=== PATIENT | female | born 1995 | race African-American/Black ===

== ENCOUNTER 2023-05-21 03:08 | Inpatient (IN) | payer OTHER ==
[~2023-05-21] VITALS: Ht 167.6 cm; Wt 91.0 kg
[2023-05-21 03:38] LABS: HEMATOCRIT 42.4 % (36.0-47.0); HEMOGLOBIN 14.2 g/dl (12.0-15.5); MEAN CORPUSCULAR HEMOGLOBIN 29.1 pg (27.0-33.0); MEAN CORPUSCULAR HGB CONC 33.5 g/dl (32.0-36.5); MEAN CORPUSCULAR VOLUME 86.9 fl (80.0-96.0); PLATELET COUNT, AUTOMATED 373 10^3/uL (150-450); RED BLOOD COUNT 4.88 10^6/uL (4.00-5.40); WHITE BLOOD COUNT 17.3 10^3/uL (4.0-10.0)
[2023-05-21 04:05] LABS: AMPHETAMINES LEVEL URINE NEGATIVE (NEGATIVE); BARBITURATES URINE NEGATIVE (NEGATIVE); BENZODIAZEPINES URINE NEGATIVE (NEGATIVE); CANNABINOIDS URINE NEGATIVE (NEGATIVE); COCAINE METABOLITE URINE NEGATIVE (NEGATIVE); METHADONE URINE NEGATIVE (NEGATIVE); OPIATES URINE NEGATIVE (NEGATIVE); PHENCYCLIDINE URINE NEGATIVE (NEGATIVE)
[2023-05-21 04:07] LABS: ETHYL ALCOHOL (ETHANOL) 0.108 % (0.000-0.010)
[2023-05-21 04:08] LABS: ACETAMINOPHEN LEVEL < 2.0 UG/ML (10.0-20.0)
[2023-05-21 04:09] LABS: ALBUMIN 4.3 G/DL (3.2-5.2); ALKALINE PHOSPHATASE 105 U/L (46-116); ALT/SGPT 21 U/L (7.0-40); AST/SGOT < 8 U/L (<34); BILIRUBIN,DIRECT < 0.1 MG/DL (<0.4); BILIRUBIN,TOTAL 0.2 MG/DL (0.3-1.2); BLOOD UREA NITROGEN 14 MG/DL (9-23); CALCIUM LEVEL 9.5 MG/DL (8.5-10.1); CARBON DIOXIDE LEVEL 23 MMOL/L (20-31); CHLORIDE LEVEL 106 MMOL/L (98-107); CREATININE FOR GFR 0.83 MG/DL (0.55-1.30); GLOMERULAR FILTRATION RATE > 60.0 (>60); GLUCOSE, FASTING 143 MG/DL (60-100); SALICYLATE LEVEL < 3.0 MG/DL (<30); SODIUM LEVEL 138 MMOL/L (136-145); TOTAL PROTEIN 7.7 G/DL (5.7-8.2)
[2023-05-21 04:11] LABS: THYROID STIMULATING HORMONE 2.875 uIU/ML (0.55-4.78)
[2023-05-21 04:26] LABS: HCG, SERUM QUALITATIVE POSITIVE (NEGATIVE)
[2023-05-21 06:19] LABS: HCG, SERUM QUANTITATIVE 245.4 MIU/ML (<4.2)
[2023-05-21] MEDS ORDERED: SERT50TA29 PO (07:03)
[2023-05-21] MEDS ORDERED: BUSP10TA PO (07:03)
[2023-05-21] MEDS ORDERED: MELA3TAB30 PO (07:03)
[2023-05-21] MEDS ORDERED: HOME MED LIST COMPLETE! XX SCH (07:05)
[2023-05-21] MEDS: SERTRALINE HCL 50 MG TAB PO SCH (10:21)
[2023-05-21] MEDS: busPIRone 10 MG TAB PO SCH ×2 (10:21→20:48)
[2023-05-21] MEDS ORDERED: LORazepam 2 MG TAB PO PRN (10:40)
[2023-05-21] MEDS ORDERED: MOM 30ML SUSPENSION UDC PO PRN (10:40)
[2023-05-21] MEDS ORDERED: ACETAMINOPHEN TAB 650MG DOSE (2X325MG) PO PRN (10:40)
[2023-05-21] MEDS ORDERED: MAALOX 30 ML SUSP *UDC PO PRN (10:40)
[2023-05-21] MEDS ORDERED: IBUPROFEN 400MG TAB PO PRN (10:40)
[2023-05-21] MEDS ORDERED: diphenhydrAMINE 25MG CAP PO PRN (10:40)
[2023-05-21] MEDS: MULTIVITAMINS/MINERALS THERAP 1 TAB PO SCH (11:14)
[2023-05-21] MEDS: FOLIC ACID 1MG TAB PO SCH (11:14)
[2023-05-21] MEDS: THIAMINE 100 MG TAB PO SCH ×2 (11:14→20:48)
[2023-05-21 12:01] VITALS: BP 136/80; TEMP 98.7; O2SAT 98
[2023-05-21 14:00] VITALS: BP 136/80
[2023-05-21 18:02] VITALS: BP 146/90; TEMP 96.8
[2023-05-21] MEDS ORDERED: busPIRone 10 MG TAB PO SCH (21:00)
[2023-05-21 22:00] VITALS: BP 127/71
[2023-05-22 06:00] VITALS: BP 130/68
[2023-05-22 06:18] VITALS: BP 130/68; TEMP 96.3; O2SAT 96
[2023-05-22] MEDS: FOLIC ACID 1MG TAB PO SCH (08:28)
[2023-05-22] MEDS: SERTRALINE HCL 50 MG TAB PO SCH (08:28)
[2023-05-22] MEDS: MULTIVITAMINS/MINERALS THERAP 1 TAB PO SCH (08:29)
[2023-05-22] MEDS: THIAMINE 100 MG TAB PO SCH (08:29)
[2023-05-22] MEDS: busPIRone 10 MG TAB PO SCH ×2 (08:29→20:37)
[2023-05-22] MEDS: NICOTINE 7 MG/24 HR TRANSDERMAL TD SCH (09:00)
[2023-05-22] MEDS ORDERED: SERTRALINE HCL 50 MG TAB PO SCH (09:00)
[2023-05-22 14:30] VITALS: BP 140/90
[2023-05-22] MEDS: traZODone 50 MG TAB PO PRN (20:37)
[2023-05-23] MEDS: SERTRALINE HCL 50 MG TAB PO SCH (08:12)
[2023-05-23] MEDS: busPIRone 10 MG TAB PO SCH ×2 (08:12→20:26)
[2023-05-23] MEDS: FOLIC ACID 1MG TAB PO SCH (08:13)
[2023-05-23] MEDS: MULTIVITAMINS/MINERALS THERAP 1 TAB PO SCH (08:13)
[2023-05-23] MEDS: NICOTINE 7 MG/24 HR TRANSDERMAL TD SCH (08:40)
[2023-05-23] MEDS: PRENATAL VITAMINS CHEWABLE TABLET PO SCH (09:00)
[2023-05-23 18:54] VITALS: BP 139/84; TEMP 97.2
[2023-05-23] MEDS: traZODone 50 MG TAB PO PRN (20:26)
[2023-05-24 06:25] VITALS: BP 113/56; TEMP 97; O2SAT 98
[2023-05-24] MEDS: busPIRone 10 MG TAB PO SCH ×2 (08:25→20:24)
[2023-05-24] MEDS: PRENATAL VITAMINS CHEWABLE TABLET PO SCH (08:25)
[2023-05-24] MEDS: SERTRALINE HCL 50 MG TAB PO SCH (08:25)
[2023-05-24] MEDS: NICOTINE 7 MG/24 HR TRANSDERMAL TD SCH (08:27)
[2023-05-24] MEDS ORDERED: PRENCHW PO (09:41)
[2023-05-24 18:51] VITALS: BP 131/68; TEMP 97.6
== END 2023-05-25 01:20 | DRG 882 ==
LOC: M ED 03:08 → M ED INP 10:37 → M PSY 12:18
PROVIDERS: ADMIT Student in an Organized Health Care Education/Training Program; ATTEND Student in an Organized Health Care Education/Training Program
DX: F43.10 Post-traumatic stress disorder, unspecified (principal); F43.21 Adjustment disorder with depressed mood; F17.210 Nicotine dependence, cigarettes, uncomplicated; F10.10 Alcohol abuse, uncomplicated; Z91.410 Personal history of adult physical and sexual abuse; Z79.899 Other long term (current) drug therapy; Z91.51 Personal history of suicidal behavior; Z33.1 Pregnant state, incidental

== ENCOUNTER 2023-07-03 11:01 | Emergency (ER) | payer OTHER ==
[~2023-07-03] VITALS: Ht 165.1 cm; Wt 89.1 kg
[~2023-07-03 11:01] MED LIST: BUSP10TA PO; MELA3TAB30 PO; PRENCHW PO; SERT50TA29 PO
[2023-07-03] MEDS ORDERED: VALT500T PO (11:57)
[2023-07-03] MEDS ORDERED: PRAZ1CAP PO (11:57)
[2023-07-03] MEDS ORDERED: HYDR50TA70 PO (11:57)
[2023-07-03] MEDS ORDERED: LITH300C PO (11:57)
[2023-07-03] MEDS ORDERED: GABA600T4 PO (11:57)
[2023-07-03] MEDS ORDERED: LUNE2TAB23 PO (12:20)
[2023-07-03 12:29] LABS: BASO # 0.1 10^3/uL (0.0-0.2); BASO % 0.4 % (0.0-1.0); EOS # 0.1 10^3/uL (0.0-0.5); EOS % 0.6 % (0.0-3.0); HEMATOCRIT 42.4 % (36.0-47.0); HEMOGLOBIN 14.1 g/dl (12.0-15.5); LYMPH # 3.2 10^3/uL (1.5-5.0); LYMPH % 27.2 % (24.0-44.0); MEAN CORPUSCULAR HEMOGLOBIN 29.2 pg (27.0-33.0); MEAN CORPUSCULAR HGB CONC 33.3 g/dl (32.0-36.5); MEAN CORPUSCULAR VOLUME 87.8 fl (80.0-96.0); MONO # 0.8 10^3/uL (0.0-0.8); MONO % 6.5 % (2.0-8.0); NEUTROPHILS # 7.6 10^3/uL (1.5-8.5); NEUTROPHILS % 64.9 % (36.0-66.0); PLATELET COUNT, AUTOMATED 307 10^3/uL (150-450); RED BLOOD COUNT 4.83 10^6/uL (4.00-5.40); WHITE BLOOD COUNT 11.7 10^3/uL (4.0-10.0)
[2023-07-03 12:48] LABS: HCG, SERUM QUANTITATIVE 505.3 MIU/ML (<4.2)
[2023-07-03 12:50] LABS: LITHIUM LEVEL < 0.10 MMOL/L (1.0-1.20)
[2023-07-03 14:51] VITALS: BP 118/82; TEMP 96.6; O2SAT 98
== END 2023-07-03 14:53 | disposition home or self-care (01) ==
LOC: M ED 11:01
DX: O00.90 Unspecified ectopic pregnancy without intrauterine pregnancy (principal); F17.200 Nicotine dependence, unspecified, uncomplicated